=== PATIENT | male | born 2005 | race Caucasian/White ===

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

== ENCOUNTER 2023-01-13 18:52 | Emergency (ER) | payer OTHER ==
[2023-01-13 19:27] VITALS: O2SAT 97
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
[2023-01-13 20:05] VITALS: BP 147/73; PULSE 90
== END 2023-01-13 20:05 | disposition home or self-care (01) ==
LOC: ED 18:52
DX: T14.8XXA Other injury of unspecified body region, initial encounter (principal); V43.53XA Car driver injured in collision with pick-up truck in traffic accident, initial encounter; M79.602 Pain in left arm; R42 Dizziness and giddiness; Z79.899 Other long term (current) drug therapy
CPT/HCPCS: 99285

== ENCOUNTER 2023-03-13 19:36 | Emergency (ER) | payer OTHER ==
[2023-03-13 20:05] VITALS: RESP 18; TEMP 99.1
[2023-03-13] MEDS ORDERED: ATARAX 25 MG PO ONE (20:49)
[2023-03-13] MEDS ORDERED: ATARAX 25 MG ONE (21:00)
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
[2023-03-13 21:19] VITALS: BP 133/75; PULSE 71; O2SAT 99
== END 2023-03-13 21:25 | disposition home or self-care (01) ==
LOC: ED 19:36
DX: F41.9 Anxiety disorder, unspecified (principal); Z79.899 Other long term (current) drug therapy
CPT/HCPCS: 99281; A9270-GY